=== PATIENT | female | born 2000 | race Caucasian/White ===

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

== ENCOUNTER 2020-09-11 17:44 | Emergency (ER) | payer OTHER ==
[2020-09-11 18:01] VITALS: BP 121/80; PULSE 82; TEMP 98.5; BMI 20.7
[2020-09-11] MEDS ORDERED: IBUPROFEN 600 MG TABLET (FP) PO ONE ×2 (18:10→18:12)
== END 2020-09-11 18:30 | disposition home or self-care (01) ==
LOC: JERFT 17:44 → JER 17:44 → JERFT 18:30
DX: S92.592A Other fracture of left lesser toe(s), initial encounter for closed fracture (principal)
CPT/HCPCS: 73660-TC-LT-FY; 99284-25

== ENCOUNTER 2021-02-02 04:12 | Emergency (ER) | payer OTHER ==
[2021-02-02 04:22] VITALS: BP 101/64; PULSE 88; TEMP 97.3; BMI 21.9
== END 2021-02-02 06:57 | disposition home or self-care (01) ==
LOC: JER 04:12
DX: H10.33 Unspecified acute conjunctivitis, bilateral (principal)
CPT/HCPCS: 99283-25

== ENCOUNTER 2022-09-14 10:19 | Emergency (ER) | payer OTHER ==
[2022-09-14 10:25] VITALS: BP 112/71; PULSE 91; RESP 18; TEMP 98.4; BMI 25.6
[2022-09-14 10:55] LABS: EPI CELLS >36 /uL (0-25.1); HCG,QUALITATIVE URINE Negative; HYALINE CASTS 4 /uL (0-3.1); PH,URINE 7.5 (5.0-8.0); URINE APPEARANCE CLOUDY; URINE BACTERIA 2745 /uL (0-1359); URINE BILIRUBIN NEGATIVE (NEGATIVE); URINE COLOR YELLOW; URINE GLUCOSE (UA) NEGATIVE (NEGATIVE); URINE KETONE NEGATIVE (NEGATIVE); URINE LEUK ESTERASE 3+ (NEGATIVE); URINE NITRITE NEGATIVE (NEGATIVE); URINE PROTEIN TRACE (NEGATIVE); URINE RBC 37 /uL (0-23.9); URINE UROBILINOGEN 0.2 mg/dL (0.2-1.0); URINE WBC 930 /uL (0-25.8)
== END 2022-09-14 11:15 | disposition home or self-care (01) ==
LOC: JER 10:19
DX: N30.01 Acute cystitis with hematuria (principal)
CPT/HCPCS: 81003; 84703; 87086; 87186; 99283-25

== ENCOUNTER 2022-11-26 18:37 | Emergency (ER) | payer OTHER ==
[2022-11-26 18:44] VITALS: BP 114/69; PULSE 83; RESP 20; TEMP 98.1; BMI 25.7
[2022-11-26] MEDS ORDERED: KETOROLAC TROMETHAMINE 30 MG/1 ML VIAL IM ONE (19:23)
[2022-11-26] MEDS ORDERED: DOXYCYCLINE HYCLATE 100 MG CAPSULE PO ONE ×2 (19:25→19:45)
[2022-11-26] MEDS ORDERED: KETOROLAC TROMETHAMINE 30 MG/1 ML VIAL ONE (19:45)
[2022-11-26] MEDS ORDERED: DIPHTH,PERTUSS(ACELL),TET 0.5 ML DISP.SYRIN IM ONE ×2 (20:50→21:01)
[2022-11-26 21:56] LABS: HIV INTERPRETATION NEGATIVE (NEGATIVE)
== END 2022-11-26 21:05 | disposition home or self-care (01) ==
LOC: JERFT 18:37
PROC: 3E0233Z Introduction of Anti-inflammatory into Muscle, Percutaneous Approach (ICD-10-PCS; principal; 2022-11-26)
PROC: 3E0234Z Introduction of Serum, Toxoid and Vaccine into Muscle, Percutaneous Approach (ICD-10-PCS; 2022-11-26)
DX: R21 Rash and other nonspecific skin eruption (principal); M79.18 Myalgia, other site; L03.317 Cellulitis of buttock; L02.31 Cutaneous abscess of buttock
CPT/HCPCS: 36415; 86695; 86696; 86780; 87389; 90471; 90715; 96372; 99284-25